=== PATIENT | female | born 1995 ===

== ENCOUNTER 2021-08-23 15:33 | Outpatient (CLI) | payer MEDICAID ==
[2021-08-23 17:28] VITALS: BP 126/60
[2021-08-23 18:29] LABS: Basophils # (Auto) 0.1 K/mm3 (0.0-0.1); Basophils % (Auto) 0.6 % (0.0-1.8); Eosinophils # (Auto) 0.1 K/mm3 (0.0-0.4); Eosinophils % (Auto) 1.1 % (0.0-4.3); Hematocrit 28.8 % (30.3-42.9); Hemoglobin 8.8 gm/dl (10.1-14.3); Lymphocytes # (Auto) 2.6 K/mm3 (1.2-5.4); Lymphocytes % (Auto) 25.1 % (13.4-35.0); Mean Corpuscular HGB Conc 31 % (30-34); Mean Corpuscular Volume 75 fl (79-97); Monocytes # (Auto) 0.8 K/mm3 (0.0-0.8); Monocytes % (Auto) 7.5 % (0.0-7.3); Platelet Count 238 K/mm3 (140-440); Red Blood Count 3.87 M/mm3 (3.65-5.03); Red Cell Distribution Width 18.1 % (13.2-15.2)
[2021-08-23 18:31] LABS: Bilirubin,Urine NEG (Negative); Blood,Urine NEG (Negative); Color,Urine Straw (Yellow); Protein,Urine <15 mg/dL mg/dL (Negative); Urobilinogen,Urine < 2.0 mg/dL (<2.0)
== END 2021-08-23 18:42 | disposition home or self-care (01) ==
LOC: TRG 15:33 → APU 15:35 → TRG 18:42
PROVIDERS: ATTEND Obstetrics & Gynecology
DX: Z34.93 Encounter for supervision of normal pregnancy, unspecified, third trimester (principal); Z3A.36 36 weeks gestation of pregnancy
CPT/HCPCS: 36415; 81001; 85025

== ENCOUNTER 2021-09-08 09:40 | Inpatient (IN) | payer MEDICAID ==
[2021-09-08] MEDS ORDERED: LACTATED RINGERS 2,000 ML ONE (10:48)
[2021-09-08] MEDS ORDERED: FAMOTIDINE 20 MG/2 ML INJ IV ONE (10:59)
[2021-09-08] MEDS ORDERED: BICITRA ORAL LIQD 30ML PO ONE (10:59)
[2021-09-08] MEDS ORDERED: METOCLOPRAMIDE 10 MG/2 ML INJ IV ONE (10:59)
--- NOTE | 2021-09-08 10:59 | Anesthesia Consultation ---
Anesthesia Consult and Med Hx Date of service: 09/08/21 - Airway Anesthetic Teeth Evaluation: Good ROM Head & Neck: Adequate Mental/Hyoid Distance: Adequate Mallampati Class: Class II Intubation Access Assessment: Probably Good - Pulmonary Exam CTA: Yes - Cardiac Exam Cardiac Exam: RRR - Pre-Operative Health Status ASA Pre-Surgery Classification: ASA2 Proposed Anesthetic Plan: Spinal - Pulmonary Hx Asthma: No - Cardiovascular System Hx Hypertension: No - Central Nervous System Hx Seizures: No Hx Psychiatric Problems: No - Endocrine Hx Renal Disease: No Hx Hypothyroidism: No Hx Hyperthyroidism: No - Hematic Hx Anemia: Yes Hx Sickle Cell Disease: No - Other Systems Hx Alcohol Use: No
[2021-09-08] MEDS ORDERED: OXYTOCIN DRIP 30 UNITS/500 ML BAG IV SCH (11:00)
[2021-09-08] MEDS ORDERED: ceFAZolin/Water 2 GM/20 ML 2 GM/20 ML SYRINGE IV NR (11:00)
--- NOTE | 2021-09-08 11:00 | Anesthesia Day of Surgery ---
Anesthesia Day of Surgery - Day of Surgery Patient Examined: Yes Patient H&P Reviewed: Yes Patient is NPO: Yes
[2021-09-08] MEDS ORDERED: CHLOROPROCAINE 20 MG/1 ML INJ 20 ML INFILTRATI ONE (11:07)
[2021-09-08 11:31] LABS: Hematocrit 36.9 % (30.3-42.9); Hemoglobin 11.5 gm/dl (10.1-14.3); Mean Corpuscular HGB Conc 31 % (30-34); Mean Corpuscular Volume 83 fl (79-97); Platelet Count 198 K/mm3 (140-440); Red Blood Count 4.47 M/mm3 (3.65-5.03)
--- NOTE | 2021-09-08 11:35 | History and Physical Report ---
History of Present Illness Date of examination: 09/08/21 Date of admission: 09/08/21 09:40 Chief complaint: Schedule repeat delivery History of present illness: 26-year-old -0-1-3 at 39+1 weeks who presents for repeat delivery and bilateral tubal ligation. The patient has a history of 3 prior deliveries. course is complicated by late presentation of care at 20 weeks estimated gestational age. The patient is GBS negative. Past History Past Medical History: other (Depression) Past Surgical History: section, other (Breast augmentation) Social history: single - Obstetrical History Expected Date of Delivery: 09/14/21 Actual Gestation: 39 Week(s) 1 Day(s) : 5 Para: 3 Hx # Term Pregnancies: 3 Number of Pregnancies: 0 Spontaneous Abortions: 1 Induced : 0 Number of Living Children: 3 Medications and Allergies Allergies Allergy/AdvReac Type Severity Reaction Status Date / Time No Known Allergies Allergy Verified 09/08/21 10:08 Home Medications Medication Instructions Recorded Confirmed Last Taken Type Ferrous Sulfate [Feosol] 325 mg PO BID 09/08/21 09/08/21 09/07/21 18:30 History Active Meds: Active Medications Lactated Ringer's (Lactated Ringers) 1,000 mls @ 2,250 mls/hr IV PREOP YOVANA Stop: 09/09/21 11:27 Oxytocin/Sodium Chloride (Pitocin/Ns 30 Unit/500ml) 30 units in 500 mls @ 0 mls/hr IV TITR YOVANA; Protocol Cefazolin Sodium (Ancef/Sterile Water 2 Gm/20 Ml) 2 gm in 20 mls @ 80 mls/hr IV PREOP NR; Protocol Stop: 09/08/21 23:59 Review of Systems All systems: negative Genitourinary: no leakage of fluid, no contractions - Vital Signs Vital signs: Vital Signs Pulse Pulse Ox 111 H 98 09/08/21 10:04 09/08/21 10:04 Temp Pulse Resp BP Pulse Ox 99 F 106 H 20 116/73 99 09/08/21 10:09 09/08/21 10:39 09/08/21 10:09 09/08/21 10:10 09/08/21 10:39 - Physical Exam Breasts: Positive: deferred Cardiovascular: Regular rate Lungs: Positive: Clear to auscultation Abdomen: Positive: normal appearance Results Result Diagrams: 09/08/21 10:40 All other labs normal. Assessment and Plan - Patient Problems (1) Previous delivery affecting Current Visit: Yes Status: Acute Plan to address problem: Admit for scheduled repeat delivery and bilateral tubal ligation
[2021-09-08 11:37] LABS: Red Cell Distribution Width 32.3 % (13.2-15.2)
[2021-09-08] MEDS: LACTATED RINGERS 1,000 ML IV SCH ×2 (11:53→17:19)
[2021-09-08] MEDS ORDERED: ceFAZolin/STERILE WATER 2 GM/20 ML SYRINGE IV ONE (12:00)
[2021-09-08] MEDS ORDERED: dexAMETHasone 20 MG/5 ML VIAL ONE (12:15)
[2021-09-08] MEDS ORDERED: KETOROLAC 30 MG/1 ML INJ ONE (12:15)
[2021-09-08] MEDS ORDERED: BUPIVACAINE/PF (0.25%) 2.5 MG/ML 30 ML VIAL INFILTRATI ONE (12:15)
[2021-09-08] MEDS ORDERED: ONDANSETRON 4 MG/2 ML INJ ONE (12:15)
[2021-09-08] MEDS ORDERED: PHENYLEPHRINE/NS 1,000 MCG/10 ML SYRINGE (OR USE) IV ONE (12:23)
[2021-09-08] MEDS ORDERED: LACTATED RINGERS 1,000 ML ONE (12:35)
--- NOTE | 2021-09-08 13:10 | Procedure Note ---
OB Delivery Note - Delivery Date of Delivery: 09/08/21 Surgeon: JEN SEPULVEDA Estimated blood loss: other (qbl 421ml) - Section Preop diagnosis: repeat Postop diagnosis: same section procedure: section, repeat low transverse, bilateral tubal ligation Disposition: PACU Complications: none - A at 1 minute: 8 at 5 minutes: 9 Infant Gender: Male (Weight 8 pounds 2 ounces)
--- NOTE | 2021-09-08 13:12 | Operative Report ---
Operative Report Operative Report: Date of surgery: September 08, 2021 Preoperative diagnosis: at 39+1 weeks; previous delivery; unwanted fertility Postoperative diagnosis: Same as above Procedure: Repeat low transverse delivery and bilateral tubal ligation via Buckhead method Surgeon: Chantell Krishnamurthy M.D. Anesthesia: Regional Estimated blood loss: 427 IV fluids: 1500 mL Urine output: 200 mL Findings: Liveborn male with Apgars of 8 and 9 weight 8 pounds 2 ounces Indications: 26-year-old -0-1-3 at 39+1 weeks who presents for repeat delivery and bilateral tubal ligation. The patient has had 3 previous deliveries in the past. Procedure: The patient was taken to the operating room and given regional anesthesia without complication. She was prepped and draped in a normal sterile fashion. A Pfannenstiel skin incision was made down to layer the fascia which was nicked in the midline extended laterally with the Bovie cautery. The superior aspect of the rectus fascia was grasped with Forest clamps x2 and the rectus muscles off sharply. This was done in inferior fashion as well. The rectus muscle midline and peritoneum entered bluntly. An Theron retractor was then inserted. A bladder blade was placed. The vesicouterine peritoneum was then entered sharply with Metzenbaum scissors. A bladder flap was created digitally. A low transverse uterine incision was then made and extended digitally. There was clear fluid upon entry into the uterine cavity. The head was delivered through the incision with fundal pressure. The cord was clamped and cut x2 and was passed off to pediatrics. The placenta was then manually extracted. The uterus was then exteriorized and cleared of clots and debris. The uterine incision was then closed in a running locked fashion with 0 Vicryl additional imbricating stitch was applied for 2 layer closure. The posterior cul-de-sac was then copiously irrigated. The uterus was replaced back into the abdomen and pelvis were the gutters were then irrigated. Surgicel was placed over the uterine incision. The Theron retractor was then removed. The peritoneum was then reapproximated with 3-0 Vicryl incorporating the rectus muscle. The fascia was then closed with 0 Vicryl in a running fashion. The skin was then reapproximated with 3-0 Monocryl on a Olaynika needle subcuticular fashion. Steri-Strips to place across the incision and a Crede procedures performed at the end of the surgery. A pressure dressing was applied to the incision. The surgery productive of a liveborn male with Apgars of 8 and 9 weight 8 pounds 2 ounces. The patient was taken to the recovery room in stable condition. All sponge laps and needle counts correct x2.
--- NOTE | 2021-09-08 13:22 | Progress Note ---
Spinal Anesthesia Block - Spinal Anesthesia Block Start Time: 12:00 Stop Time: 12:03 Performed by:: BRII PARRA Procedure: Sitting, sterile Duraprep prep/drape, 1% lidocaine skin local, 25G spinal needle + introducer at L3-4, + CSF, - Heme, Chloroprocaine 2% 2.5ml, dexmedetomidine 10 mcg injected, drape removed, patient positioned supine with left uterine displacement, and spinal level verified to be adequate prior to surgery.
[2021-09-08] MEDS: KETOROLAC 30 MG/1 ML INJ IV SCH (16:30)
[2021-09-08 16:57] LABS: Anisocytosis 2+; Band Neutrophils # (Manual) 0.1 K/mm3; Basophils % (Manual) 0 % (0.0-1.8); Hypochromasia Few; Platelet Estimate Consistent w Auto; Total Cells Counted 100
[2021-09-08] MEDS: oxyCODONE /ACETAMINOPHEN 5-325MG TAB PO PRN (21:12)
[2021-09-09] MEDS: KETOROLAC 30 MG/1 ML INJ IV SCH ×2 (00:47→10:43)
[2021-09-09] MEDS: LACTATED RINGERS 1,000 ML IV SCH (00:48)
[2021-09-09 03:45] LABS: Hemoglobin 9.5 gm/dl (10.1-14.3)
[2021-09-09] MEDS: oxyCODONE /ACETAMINOPHEN 5-325MG TAB PO PRN ×3 (04:59→23:36)
--- NOTE | 2021-09-09 14:55 | Post Anesthesia Evaluation ---
- Post Anesthesia Evaluation Patient Participated: Yes Airway Patent: Yes Stable Respiratory Function: Yes Nausea/Vomiting: No Temp > 96.8F: Yes Pain Manageable: Yes Adequeate Hydration: Yes Anesthesia Complications: No Block Receding Appropriately: Yes
--- NOTE | 2021-09-09 17:14 | Progress Note ---
Assessment and Plan Postop day 1 status post repeat x4. Patient doing well. Patient sitting out of bed in chair. She is tolerating food without difficulty. Her pain is well controlled. Patient is considering discharge on tomorrow, otherwise will be on Saturday. Subjective - Subjective Date of service: 09/09/21 Principal diagnosis: Status post Patient reports: appetite normal, voiding normally, pain well controlled, f latus, ambulating normally [place]: doing well Objective - Vital Signs Latest vital signs: Vital Signs Temp Pulse Resp BP Pulse Ox Pulse Ox 09/09/21 11:48 97.3 F L 104 H 20 106/64 98 09/09/21 08:00 97 09/09/21 05:08 98.0 F 59 L 20 105/58 98 09/09/21 05:00 97 09/09/21 03:20 97 09/09/21 01:15 97 09/09/21 00:30 98 09/09/21 00:06 98.2 F 82 20 106/58 97 09/08/21 22:00 97 09/08/21 20:40 98 09/08/21 20:21 98.9 F 93 H 20 124/67 99 Intake and Output 09/09/21 09/09/21 09/09/21 06:59 14:59 22:59 Intake Total 120 Output Total 1000 120 Balance -880 -120 Intake: Oral 120 Output: Urine 1000 120 Indwelling Catheter 1000 Void 120 Other: Total, Intake Amount 120 Total, Output Amount 1000 120 # Voids Indwelling Catheter 1 Void 1 1 1 - Exam Cardiovascular: Present: Regular rate, Normal S1, Normal S2 Lungs: Present: Clear to auscultation, Normal air movement Abdomen: Present: normal appearance, soft Uterus: Present: normal, firm Extremities: Present: normal Incision: Present: normal, dry, intact, dressed - Labs Labs: Abnormal lab results 09/09/21 Range/Units 03:28 Hgb 9.5 L (10.1-14.3) gm/dl
[2021-09-09] MEDS: IBUPROFEN 800 MG TAB PO SCH ×2 (17:57→18:03)
[2021-09-09] MEDS: DOCUSATE SODIUM 100 MG CAP PO SCH (18:02)
[2021-09-10] MEDS: IBUPROFEN 800 MG TAB PO SCH ×2 (01:53→10:55)
[2021-09-10] MEDS: DOCUSATE SODIUM 100 MG CAP PO SCH ×2 (05:46→10:54)
[2021-09-10] MEDS: oxyCODONE /ACETAMINOPHEN 5-325MG TAB PO PRN ×2 (07:57→16:23)
[2021-09-10 18:58] VITALS: BP 123/75
== END 2021-09-10 19:14 | disposition home or self-care (01) | DRG 766 ==
LOC: APU 09:40 → OB 15:45
PROVIDERS: ADMIT Obstetrics & Gynecology; ATTEND Obstetrics & Gynecology
PROC: 10D00Z1 Extraction of Products of Conception, Low, Open Approach (ICD-10-PCS; principal; 2021-09-08)
PROC: 0UB70ZZ Excision of Bilateral Fallopian Tubes, Open Approach (ICD-10-PCS; 2021-09-08)
DX: O34.211 Maternal care for low transverse scar from previous cesarean delivery (principal); Z37.0 Single live birth; Z20.822 Contact with and (suspected) exposure to COVID-19; O99.344 Other mental disorders complicating childbirth; Z3A.39 39 weeks gestation of pregnancy; F32.9 Major depressive disorder, single episode, unspecified; Z30.2 Encounter for sterilization
CPT/HCPCS: 36415; 85007; 85014; 85018; 85025; 85027; 86592; 86850; 86900; 86901; 88302; G0378; J3490; J7121; J0690; J1100; J1885; J2370; J2400; J2405; J2765; J7120; U0003

== ENCOUNTER 2021-12-04 16:27 | Emergency (ER) | payer MEDICAID ==
[2021-12-04 18:29] LABS: Hematocrit 38.3 % (30.3-42.9); Hemoglobin 12.8 gm/dl (10.1-14.3); Mean Corpuscular HGB Conc 34 % (30-34); Mean Corpuscular Volume 90 fl (79-97); Platelet Count 246 K/mm3 (140-440); Red Blood Count 4.24 M/mm3 (3.65-5.03); Red Cell Distribution Width 14.7 % (13.2-15.2)
[2021-12-04 18:40] LABS: Blood Urea Nitrogen 14 mg/dL (7-17); Calcium 9.5 mg/dL (8.4-10.2); Hemolysis Index 8
[2021-12-04 18:42] LABS: BUN/Creatinine Ratio 20
[2021-12-04] MEDS ORDERED: KETOROLAC 30 MG/1 ML INJ IV ONE (21:52)
[2021-12-04] MEDS ORDERED: FAMOTIDINE 20 MG/2 ML INJ IV ONE (21:52)
[2021-12-04] MEDS ORDERED: ONDANSETRON 4 MG/2 ML INJ IV ONE (21:52)
[2021-12-04 22:42] LABS: Bilirubin,Urine NEG (Negative); Blood,Urine NEG (Negative); Color,Urine Yellow (Yellow); Hyaline Casts,Urine 2 /LPF; Mucus,Urine FEW /HPF; Protein,Urine <15 mg/dL mg/dL (Negative); Urobilinogen,Urine < 2.0 mg/dL (<2.0)
--- NOTE | 2021-12-04 23:39 | Cat Scan Report ---
CT ABDOMEN AND PELVIS WITH CONTRAST INDICATION / CLINICAL INFORMATION: Pt complains of abdominal pain and bloating. TECHNIQUE: Axial CT images were obtained through the abdomen and pelvis after 100 cc Omnipaque [address] scans at this location are performed using CT dose reduction for ALARA by means of automated exposure control. COMPARISON: None available. FINDINGS: LOWER CHEST: No significant abnormality of the imaged chest. LIVER: No significant abnormality. Portal vein appears patent. GALLBLADDER: Contracted BILE DUCTS: No significant abnormality. SPLEEN: No significant abnormality. PANCREAS: No significant abnormality. ADRENALS: No significant abnormality. KIDNEYS/URETERS: No stones or hydronephrosis. No solid renal lesion. STOMACH / DUODENUM / SMALL BOWEL: The stomach, duodenum, and small bowel demonstrate no significant a bnormality. No specific abnormality of the mesentery demonstrated. COLON: No significant abnormality. APPENDIX: No significant abnormality. PERITONEUM: No free air or free fluid are present within the abdomen or pelvis. LYMPH NODES: No significant adenopathy. AORTA / ARTERIES: No significant abnormality. IVC / VEINS: No significant abnormality. URINARY BLADDER: No significant abnormality. REPRODUCTIVE ORGANS: No significant abnormality. ADDITIONAL ABDOMINAL/PELVIC FINDINGS: None. SKELETAL SYSTEM: No significant abnormality. IMPRESSION: 1. No imaging findings to suggest etiology of provided symptoms. Signer Name: Abdulkadir Johnson II, MD Signed: 12/04/2021 11:35 PM Workstation Name: [id number]
--- NOTE | 2021-12-05 00:10 | Emergency Department Report ---
ED Abdominal Pain HPI - General Chief Complaint: Abdominal Pain Stated Complaint: POSSIBLE EPTOPIC PREG Source: patient Mode of arrival: Ambulatory Limitations: No Limitations - History of Present Illness Initial Comments: Patient is a A0 26-year-old -[place] female who is 2 months presents to the ED with complaint of acute onset persistent intermittent diffuse lower abdominal pain with nausea for the last 2 weeks. Patient states that the pain is persistent and sometimes she experiences episodes of bloating but that the pain has been constant. Patient denies dysuria, urinary frequency and urgency, vomiting, chest pain or shortness of breath, fever, chills, vaginal bleeding, vaginal discharge, cough, sore throat, low back pain or hematuria. MD Complaint: abdominal pain -: Sudden, days(s) (5), week(s) (2) Location: periumbilical, epigastric Radiation: none Migration to: no migration Severity: moderate Severity scale (0 -10): 5 Quality: aching Consistency: constant Improves With: nothing Worsens With: nothing Associated Symptoms: denies other symptoms, nausea, vomiting. denies: diarrhea, fever, chills, constipation, dysuria, hematemesis, hematochezia, melena, anorexia, syncope - Related Data LMP Date: 11/21/21 Home Medications Medication Instructions Recorded Confirmed Last Taken Ferrous Sulfate [Feosol] 325 mg PO BID 09/08/21 09/08/21 09/07/21 18:30 Previous Rx's Medication Instructions Recorded Last Taken Type Docusate Sodium [Colace] 100 mg PO BID #60 capsule 09/09/21 Unknown Rx Ibuprofen [Motrin] 800 mg PO Q8HR PRN #40 tablet 09/09/21 Unknown Rx oxyCODONE /ACETAMINOPHEN [Percocet 2 tab PO Q6HR PRN #40 tablet 09/09/21 Unknown Rx 5/325] Dicyclomine [Bentyl] 20 mg PO Q6H PRN #30 tablet 12/05/21 Unknown Rx Famotidine [Pepcid] 20 mg PO BID #60 tablet 12/05/21 Unknown Rx Ondansetron [Zofran Odt] 4 mg PO Q8HR PRN #15 tab.rapdis 12/05/21 Unknown Rx Allergies Allergy/AdvReac Type Severity Reaction Status Date / Time No Known Allergies Allergy Verified 02/04/22 10:08 ED Review of Systems ROS: Stated complaint: POSSIBLE EPTOPIC PREG Other details as noted in HPI Constitutional: denies: chills, fever Eyes: denies: eye pain, eye discharge, vision change ENT: denies: ear pain, throat pain Respiratory: denies: cough, shortness of breath, wheezing Cardiovascular: denies: chest pain, palpitations Endocrine: no symptoms reported Gastrointestinal: abdominal pain, nausea, vomiting. denies: diarrhea Genitourinary: denies: urgency, dysuria, discharge Musculoskeletal: denies: back pain, joint swelling, arthralgia Skin: denies: rash, lesions Neurological: denies: headache, weakness, paresthesias Psychiatric: denies: anxiety, depression Hematological/Lymphatic: denies: easy bleeding, easy bruising ED Past Medical Hx - Past Medical History Hx Hypertension: No Hx Congestive Heart Failure: No Hx Diabetes: No Hx Deep Vein Thrombosis: No Hx Renal Disease: No Hx Sickle Cell Disease: No Hx Seizures: No Hx Asthma: No Hx COPD: No Hx HIV: No - Social History Smoking Status: Never Smoker - Medications Home Medications: Home Medications Medication Instructions Recorded Confirmed Last Taken Type Ferrous Sulfate [Feosol] 325 mg PO BID 09/08/21 09/08/21 09/07/21 18:30 History Docusate Sodium [Colace] 100 mg PO BID #60 capsule 09/09/21 Unknown Rx Ibuprofen [Motrin] 800 mg PO Q8HR PRN #40 tablet 09/09/21 Unknown Rx oxyCODONE /ACETAMINOPHEN [Percocet 2 tab PO Q6HR PRN #40 tablet 09/09/21 Unknown Rx 5/325] Dicyclomine [Bentyl] 20 mg PO Q6H PRN #30 tablet 12/05/21 Unknown Rx Famotidine [Pepcid] 20 mg PO BID #60 tablet 12/05/21 Unknown Rx Ondansetron [Zofran Odt] 4 mg PO Q8HR PRN #15 tab.rapdis 12/05/21 Unknown Rx ED Physical Exam - General Limitations: No Limitations General appearance: alert, in no apparent distress - Head Head exam: Present: atraumatic, normocephalic, normal inspection - Eye Eye exam: Present: normal appearance, PERRL, EOMI Pupils: Present: normal accommodation - ENT ENT exam: Present: normal exam, normal orophraynx, mucous membranes moist, TM's normal bilaterally, normal external ear exam - Neck Neck exam: Present: normal inspection, full ROM. Absent: tenderness - Respiratory Respiratory exam: Present: normal lung sounds bilaterally. Absent: respiratory distress, wheezes, rales, rhonchi, chest wall tenderness, accessory muscle use, decreased breath sounds, prolonged expiratory - Cardiovascular Cardiovascular Exam: Present: regular rate, normal rhythm, normal heart sounds. Absent: systolic murmur, diastolic murmur, rubs, gallop - GI/Abdominal GI/Abdominal exam: Present: soft, tenderness (Palpable diffuse periumbilical and lower abdominal tenderness), normal bowel sounds. Absent: guarding, rebound, hyperactive bowel sounds, hypoactive bowel sounds, organomegaly, mass, pulsatile mass - Extremities Exam Extremities exam: Present: normal inspection, full ROM, normal capillary refill - Back Exam Back exam: Present: normal inspection, full ROM. Absent: tenderness, CVA tenderness (R), CVA tenderness (L), muscle spasm, paraspinal tenderness, vertebral tenderness - Neurological Exam Neurological exam: Present: alert, oriented X3, CN II-XII intact, normal gait, reflexes normal - Psychiatric Psychiatric exam: Present: normal affect, normal mood - Skin Skin exam: Present: warm, dry, intact, normal color. Absent: rash ED Course Vital Signs 12/04/21 17:26 Temperature 97.8 F Pulse Rate 99 H Respiratory 18 Rate Blood Pressure 123/62 [Right] O2 Sat by Pulse 100 Oximetry ED Medical Decision Making - Lab Data Result diagrams: 12/04/21 18:07 12/04/21 18:07 - Radiology Data [facility] [address] [place] [address] Cat Scan Report Signed Patient: CODY DAVIS MR#: [id number] : 1995 Acct:[id number] Age/Sex: 26 / F ADM Date: 12/04/21 Loc: ED Attending Dr: Ordering Physician: MARY DUNCAN Date of Service: 12/04/21 Procedure(s): CT abdomen pelvis w con Accession Number(s): [id number] cc: MARY DUNCAN CT ABDOMEN AND PELVIS WITH CONTRAST INDICATION / CLINICAL INFORMATION: Pt complains of abdominal pain and bloating. TECHNIQUE: Axial CT images were obtained through the abdomen and pelvis after 100 cc Omnipaque [address] scans at this location are performed using CT dose reduction for ALARA by means of automated exposure control. COMPARISON: None available. FINDINGS: LOWER CHEST: No significant abnormality of the imaged chest. LIVER: No significant abnormality. Portal vein appears patent. GALLBLADDER: Contracted BILE DUCTS: No significant abnormality. SPLEEN: No significant abnormality. PANCREAS: No significant abnormality. ADRENALS: No significant abnormality. KIDNEYS/URETERS: No stones or hydronephrosis. No solid renal lesion. STOMACH / DUODENUM / SMALL BOWEL: The stomach, duodenum, and small bowel demonstrate no significant abnormality. No specific abnormality of the mesentery demonstrated. COLON: No significant abnormality. APPENDIX: No significant abnormality. PERITONEUM: No free air or free fluid are present within the abdomen or pelvis. LYMPH NODES: No significant adenopathy. AORTA / ARTERIES: No significant abnormality. IVC / VEINS: No significant abnormality. URINARY BLADDER: No significant abnormality. REPRODUCTIVE ORGANS: No significant abnormality. ADDITIONAL ABDOMINAL/PELVIC FINDINGS: None. SKELETAL SYSTEM: No significant abnormality. IMPRESSION: 1. No imaging findings to suggest etiology of provided symptoms. Signer Name: Demond Johnson II, MD Signed: 12/04/2021 11:35 PM Workstation Name: [id number] Transcribed By: MAUREEN Dictated By: DEMOND JOHNSON II, MD Electronically Authenticated By: DEMOND JOHNSON II, MD Signed Date/Time: 12/04/212334 DD/ 32 TD/TT: - Medical Decision Making This is a A0 26-year-old -[place] female who is 2 months presents to the ED with complaint of acute onset persistent intermittent diffuse lower abdominal pain with nausea for the last 2 weeks. Patient states that the pain is persistent and sometimes she experiences episodes of bloating but that the pain has been constant. In the ED, patient is alert and oriented x3 and is not in any distress. Patient was treated for pain in the ED. Abdomen pelvis CT scan with IV contrast showed no acute abnormalities. Lab test results were reviewed and are all nonactionable. On reevaluation, patient's pain is well controlled medication. Patient will discharge home on pain medications and advised to follow-up with her primary care physician in 5 to 7 days for reevaluation or return to the ED immediately if symptoms get worse. - Differential Diagnosis GERD; gastroenteritis; UTI; pancreatitis; appendicitis; UTI; colitis Critical care attestation.: If time is entered above; I have spent that time in minutes in the direct care of this critically ill patient, excluding procedure time. ED Disposition Clinical Impression: Abdominal pain in female patient, Nausea and vomiting in adult GERD (gastroesophageal reflux disease) Qualifiers: Esophagitis presence: esophagitis presence not specified Qualified Code(s): K21.9 - Gastro-esophageal reflux disease without esophagitis Disposition: HOME / SELF CARE / HOMELESS Is pt being admited?: No Does the pt Need Aspirin: No Condition: Stable Instructions: Abdominal Pain (ED), Abdominal Pain, Adult, [id number], Nausea and Vomiting, Adult, [id number], Gastroesophageal Reflux Disease, Adult, [id number] Additional Instructions: All lab test results were reviewed and are all nonactionable. Abdomen pelvis CT scan without contrast also showed no acute abnormalities. Your symptoms are likely GERD or possibly gas or even a viral syndrome. Therefore take medications as needed, drink plenty of fluids, follow-up with your primary care physician in 5 to 7 days for reevaluation or return to the ED immediately if symptoms get worse. Prescriptions: Dicyclomine [Bentyl] 20 mg PO Q6H PRN #30 tablet PRN Reason: Abdominal pain Famotidine [Pepcid] 20 mg PO BID #60 tablet Ondansetron [Zofran Odt] 4 mg PO Q8HR PRN #15 tab.rapdis PRN Reason: Nausea Time of Disposition: 00:14 Print Language: UKRAINIAN
[2021-12-05 00:38] VITALS: BP 132/72
== END 2021-12-05 00:38 | disposition home or self-care (01) ==
LOC: ED 16:27
DX: K21.9 Gastro-esophageal reflux disease without esophagitis (principal); Z79.899 Other long term (current) drug therapy
CPT/HCPCS: 36415; 74177; 80048; 81001; 84702; 85027; 86900; 86901; 96374; 96375; 99284; J1885; J2405; J3490; Q9967